=== PATIENT | male | born 2005 | race Caucasian/White ===

== ENCOUNTER 2024-05-22 07:46 | Emergency (ER) | payer BC ==
[2024-05-22 08:51] LABS: #Basophils 0.06 10x3/uL (0.0-0.2); %Basophils 0.8 % (0.0-1.0); %Eosinophils 3.2 % (0.0-10.0); %Lymphocytes 30.6 % (28.0-48.0); %Monocytes 9.4 % (0.0-4.0); %Neutrophils 55.7 % (31.0-61.0); Hematocrit 43.9 % (42.0-52.0); Hemoglobin 14.7 g/dL (14.0-18.0); Mean Corpuscular HGB CONC 33.5 g/dL (32.0-36.0); Mean Corpuscular Hemoglobin 28.5 pg (25.0-35.0); Mean Corpuscular Volume 85.2 fL (78.0-98.0); Mean Platelet Volume 9.1 fL (7.4-10.4); Platelet Count 354 10x3/uL (130-400); Red Blood Cell (RBC) Count 5.15 mill/uL (4.00-5.20)
[2024-05-22 09:08] LABS: INR-International Normal Ratio 1.2; PTT 26.5 sec (22.9-36.1); Prothrombin Time 14.7 sec (12.0-14.7)
[2024-05-22 09:17] LABS: ALT (SGPT) 16 U/L (8-55); AST (SGOT) 21 U/L (10-45); Albumin 4.5 g/dL (3.5-5.0); Alkaline Phosphatase 92 U/L (50-130); Anion Gap 15 mmol/L (10-20); BUN (Urea Nitrogen) 12 mg/dL (8.4-21.0); Bilirubin, Total 0.5 mg/dL (0.2-1.2); Calc. Creatinine Clearance 0 mL/min (70-130); Calcium 10.1 mg/dL (7.8-10.44); Carbon Dioxide 28 mmol/L (22-29); Chloride 104 mmol/L (98-107); Estimated GFR 101; Globulin 3.1 g/dL (2.4-3.5); Glucose 71 mg/dL (70-105); Potassium 4.3 mmol/L (3.5-5.1); Protein, Total 7.6 g/dL (6.0-8.3); Sodium 143 mmol/L (136-145)
[2024-05-22 09:21] LABS: Troponin I 0.013 ng/mL (< 0.028)
== END 2024-05-22 09:44 | disposition home or self-care (01) ==
LOC: ERS 07:46
DX: K12.1 Other forms of stomatitis (principal); I45.10 Unspecified right bundle-branch block
CPT/HCPCS: 36415; 71046; 80053; 84484; 85025; 85610; 85730; 93005; 99285